=== PATIENT | male | born 1995 | race African-American/Black ===

== ENCOUNTER 2024-05-15 17:23 | Emergency (ER) | payer SELFPAY ==
[~2024-05-15] VITALS: Ht 175.3 cm; Wt 91.0 kg
[2024-05-15 17:35] VITALS: O2SAT 99
[2024-05-15] MEDS: LORAZEPAM 2MG/ML INJ IM ONE (18:17)
[2024-05-15] MEDS: HALOPERIDOL LACTATE 5MG/ML VIAL IM ONE (18:17)
[2024-05-15] MEDS: DIPHENHYDRAMINE 50MG/ML VIAL IM ONE (18:17)
[2024-05-15 19:00] LABS: BASOPHILS % 0.4 % (0.0-2.0); EOSINOPHILS % 1.6 % (0.0-5.0); HEMATOCRIT. 38.9 % (42.0-52.0); HEMOGLOBIN. 13.4 g/dL (14.0-18.0); LYMPHOCYTES % 19.6 % (20.0-50.0); MEAN CORPUSCULAR HEMOGLOBIN 32.9 pg (28.0-32.0); MEAN CORPUSCULAR HGB CONC 34.6 g/dL (31.0-37.0); MEAN CORPUSCULAR VOLUME 95.1 fL (80.0-94.0); MEAN PLATELET VOLUME 8.3 fl (7.4-10.4); MONOCYTES % 10.7 % (2.0-8.0); NEUTROPHILS % 67.7 % (40.0-76.0); PLATELET 250 x1000/uL (130-400); RED BLOOD CELL COUNT 4.08 mill/uL (4.7-6.1); RED CELL DISTRIBUTION WIDTH 12.7 % (11.6-14.6); WHITE BLOOD COUNT 7.5 x1000/uL (4.5-11.0)
[2024-05-15 19:10] LABS: CHLORIDE 105 mEq/L (98-107); POTASSIUM 3.8 mEq/L (3.5-5.1); SODIUM 139 mEq/L (136-145)
[2024-05-15 19:11] LABS: CALCIUM 9.3 mg/dL (8.7-10.4); CARBON DIOXIDE 27 mEq/L (21-32)
[2024-05-15 19:15] LABS: CREATININE 1.3 mg/dL (0.6-1.3)
[2024-05-15 19:16] LABS: GLUCOSE 74 mg/dL (70-105); UREA NITROGEN BLOOD 14 mg/dL (9-23)
[2024-05-15 19:18] LABS: ACETAMINOPHEN < 2 ug/mL (10-30)
[2024-05-15 19:25] LABS: ETHANOL BLOOD < 10 mg/dL (<10)
[2024-05-15] MEDS: BACITRACIN ZINC OINT UDPKT TOP ONE (19:30)
[2024-05-15 19:31] LABS: CLARITY URINE CLEAR (CLEAR); COLOR URINE YELLOW (YELLOW); GLUCOSE URINE NEGATIVE (NEGATIVE); KETONES URINE NEGATIVE (NEGATIVE); LEUKOCYTE ESTERASE URINE NEGATIVE (NEGATIVE); NITRITE URINE NEGATIVE (NEGATIVE); OCCULT BLOOD URINE NEGATIVE (NEGATIVE); PH URINE 7.5 (4.5-8.0); PROTEIN URINE 2+ (NEGATIVE); SPECIFIC GRAVITY URINE 1.012 (1.005-1.030)
[2024-05-15 19:48] LABS: BACTERIA URINE TRACE; RBC URINE NONE SEEN /hpf (0-2); SQUAMOUS EPITHELIAL CELL URINE FEW /lpf (RARE/1+); WBC URINE 0-2 /hpf (0-2)
[2024-05-15 19:52] LABS: *AMPHETAMINES SCREEN URINE PRESUMPTIVE POSITIVE (NEGATIVE); *BARBITURATES SCREEN URINE NEGATIVE (NEGATIVE); *BENZODIAZEPINES SCREEN URINE NEGATIVE (NEGATIVE); *COCAINE SCREEN URINE NEGATIVE (NEGATIVE); CANNABINOID URINE SCREEN NEGATIVE (NEGATIVE); ECSTASY MDMA SCREEN URINE NEGATIVE (NEGATIVE); METHADONE URINE SCREEN NEGATIVE (NEGATIVE); OPIATES URINE SCREEN NEGATIVE (NEGATIVE); PHENCYCLIDINE URINE SCREEN NEGATIVE (NEGATIVE)
[2024-05-16] MEDS: OLANZAPINE 5MG TABLET ODT PO SCH (14:12)
[2024-05-18 09:39] VITALS: BP 122/68; PULSE 78; RESP 18; TEMP 36.61404; O2SAT 99
== END 2024-05-18 09:15 | disposition home or self-care (01) ==
LOC: ER 17:23
DX: S80.212A Abrasion, left knee, initial encounter (principal); R45.1 Restlessness and agitation; Z20.822 Contact with and (suspected) exposure to COVID-19; X58.XXXA Exposure to other specified factors, initial encounter; Y93.89 Activity, other specified; Y92.89 Other specified places as the place of occurrence of the external cause; Y99.8 Other external cause status
CPT/HCPCS: 80305; 80048; 81003; 80307; 80329; 80320; 85025; 36415; 96372; 99291; 87426; J1200; J1630; J2060; G0480

== ENCOUNTER 2024-07-24 20:56 | Emergency (ER) | payer SELFPAY ==
[~2024-07-24] VITALS: Ht 177.8 cm; Wt 90.0 kg
[2024-07-24 20:56] VITALS: TEMP 36.7; O2SAT 98
[2024-07-24] MEDS ORDERED: LORAZEPAM 2MG/ML INJ IM ONE (21:30)
[2024-07-24] MEDS ORDERED: DIPHENHYDRAMINE 50MG/ML VIAL IM PRN (21:30)
[2024-07-24] MEDS: ZIPRASIDONE MESYLATE 20MG/VIAL IM ONE (21:41)
[2024-07-24] MEDS: LORAZEPAM 2MG/ML INJ IM NR (22:42)
[2024-07-25 03:36] LABS: BASOPHILS % 0.4 % (0.0-2.0); EOSINOPHILS % 1.5 % (0.0-5.0); HEMATOCRIT. 39.5 % (42.0-52.0); HEMOGLOBIN. 13.4 g/dL (14.0-18.0); LYMPHOCYTES % 37.2 % (20.0-50.0); MEAN CORPUSCULAR HEMOGLOBIN 32.8 pg (28.0-32.0); MEAN CORPUSCULAR VOLUME 96.5 fL (80.0-94.0); MEAN PLATELET VOLUME 7.9 fl (7.4-10.4); MONOCYTES % 11.2 % (2.0-8.0); NEUTROPHILS % 49.7 % (40.0-76.0); PLATELET 351 x1000/uL (130-400); RED BLOOD CELL COUNT 4.09 mill/uL (4.7-6.1); RED CELL DISTRIBUTION WIDTH 12.5 % (11.6-14.6); WHITE BLOOD COUNT 7.2 x1000/uL (4.5-11.0)
[2024-07-25 03:38] LABS: CHLORIDE 108 mEq/L (98-107); POTASSIUM 3.8 mEq/L (3.5-5.1); SODIUM 143 mEq/L (136-145)
[2024-07-25 03:39] LABS: CARBON DIOXIDE 26 mEq/L (21-32)
[2024-07-25 03:40] LABS: CALCIUM 9.5 mg/dL (8.7-10.4)
[2024-07-25 03:44] LABS: GLUCOSE 74 mg/dL (70-105); UREA NITROGEN BLOOD 13 mg/dL (9-23)
[2024-07-25 03:46] LABS: ACETAMINOPHEN < 2 ug/mL (10-30)
[2024-07-25 04:02] LABS: ETHANOL BLOOD < 10 mg/dL (<10)
[2024-07-25 05:36] VITALS: BP 112/69; PULSE 64; RESP 14; O2SAT 98
== END 2024-07-25 06:13 | disposition home or self-care (01) ==
LOC: ER 20:56
DX: R41.82 Altered mental status, unspecified (principal); F15.10 Other stimulant abuse, uncomplicated; Z98.890 Other specified postprocedural states
CPT/HCPCS: 36415; 71045; 70450; 93005; 96372; 99291; 80048; 80307; 80329; 80320; 85025; J1200; J2060; J3486; Z7610 ×2; A4606; G0480